=== PATIENT | male | born 1950 | race Caucasian/White ===

== ENCOUNTER 2019-05-30 09:17 | Emergency (ER) | payer OTHER ==
[~2019-05-30] VITALS: Ht 175.3 cm; Wt 81.7 kg
== END 2019-05-30 10:36 | disposition home or self-care (01) ==
LOC: ED 09:17
DX: S81.811A Laceration without foreign body, right lower leg, initial encounter (principal); F17.200 Nicotine dependence, unspecified, uncomplicated; W21.89XA Striking against or struck by other sports equipment, initial encounter
CPT/HCPCS: 90471; 90715; 99282-25; 99406